=== PATIENT | male | born 1980 | race Hispanic/Latino ===

== ENCOUNTER 2021-10-21 15:34 | Outpatient (CLI) | payer BC | END 2021-10-21 15:35 | disposition home or self-care (01) | LOC: CSHULT 15:34 | PROVIDERS: ATTEND Urology | DX: N46.9 Male infertility, unspecified (principal) | CPT/HCPCS: 76870; 93976 ==

== ENCOUNTER 2022-04-12 08:28 | Outpatient (CLI) | payer BC | END 2022-04-12 08:29 | disposition home or self-care (01) | LOC: CSHULT 08:28 | PROVIDERS: ATTEND Family Medicine Sports Medicine | DX: R79.89 Other specified abnormal findings of blood chemistry (principal); K76.9 Liver disease, unspecified | CPT/HCPCS: 76700 ==